=== PATIENT | female | born 1940 | race Two or more races ===

== ENCOUNTER 2022-10-20 17:25 | Emergency (ER) | payer OTHER, BC ==
[~2022-10-20] VITALS: Ht 149.9 cm; Wt 68.0 kg
[2022-10-20] MEDS ORDERED: GLUMETZA500 MG (17:45)
[2022-10-20] MEDS ORDERED: LISINOPRIL5 MG PO (17:45)
== END 2022-10-20 20:27 | disposition home or self-care (01) ==
LOC: ER 17:25
DX: N39.0 Urinary tract infection, site not specified (principal)